=== PATIENT | female | born 1995 | race Caucasian/White ===

== ENCOUNTER 2016-12-08 10:43 | Emergency (ER) | payer OTHER ==
[~2016-12-08] VITALS: Ht 170.2 cm; Wt 104.3 kg
[~2016-12-08 10:43] MED LIST: ALBUTEROL SULFAT3 M1 INH; ANECREAM4% PR; BENTYL20 MG PO; CRYSELLE 30 MCG1 TAB PO; DIAZEPAM5 MG PO; EPIPEN ADULT A0.3 MG IM; FENOFIBRATE145 MG PO; IBUPROFEN800 M1 PO; IBUPROFEN800 MG PO; INVEGA; MONTELUKAST SOD10 MG PO; NAPROXEN500 MG; NORCO 325 MG-51 TAB PO; PRENATAL1 TA2 PO; PROPRANOLOL HCL60 MG PO; SUMATRIPTAN SUC50 MG; SYMBICORT 80/4.1 PUF; VENTOLIN H0.09 MG/Ac INH; VITAMIN D50000 IU PO
--- NOTE | 2016-12-08 12:03 | ED GI/GU/ABDOMINAL COMPLAINT ---
See Addendum History of Present Illness General Chief Complaint: Female Urogenital Problems Stated Complaint: SIB [facility], BLEEDING,CRAMPING X 3 DAYS Source: patient, old records Exam Limitations: no limitations Vital Signs & Intake/Output Vital Signs & Intake/Output Vital Signs Date Time Temp Pulse Resp B/P Pulse O2 O2 Flow FiO2 Ox Delivery Rate 12/08 1317 97.5 68 18 123/56 97 Room Air 12/08 1055 96.7 81 20 112/78 98 Room Air ED Intake and Output 12/09 0000 12/08 1200 Intake Total Output Total Balance Patient 230 lb Weight Allergies Coded Allergies: peanut (Severe, THROAT CLOSES 02/08/16) divalproex sodium (From DEPAKOTE) (Intermediate, AMMONIA LEVEL IN LIVER ELEVATES 02/08/16) haloperidol (From HALDOL) (Intermediate, DYSTONIA 02/08/16) shellfish derived (HIVES AND THROAT GETS SCRATCHY 02/08/16) Uncoded Allergies: SEAFOOD (THROAT GETS ITCHY AND HIVES 02/08/16) Triage Note: PT TO ED C/O VAGINAL BLEEDING AND CRAMPING SINCE THURSDAY. PT IS POST-PARTEM 6 MONTHS. STATES MENSES HAS NOT REGULATED BACK TO NORMAL. PT HAS MERINA IN PLACE, PLACED IN JUL. PT CALLED [facility] AND TOLD TO COME TO ED. PT STATES "I HAVE USED 2 SUPER TAMPONS IN UNDER 2 HOURS". Triage Nurses Notes Reviewed? yes ? n Is pt currently ? No HPI: Patient is a 21-year-old female presents complaining of vaginal bleeding and pelvic cramping.. Symptoms onset on Thursday and have been waxing and waning since onset. Patient reports that she has gone through 2 super tampons today and went through at least 8 super tampons yesterday. Patient reports that since arriving at the emergency department bleeding has significantly improved. Pelvic cramping is severe. Symptoms feel similar to when patient had uterine fibroids. Patient reports that the uterine fibroids improved while she was . Patient is approximately 6.5 months . Patient had a Mirena intrauterine device installed in July 2016. Currently reports associated headache. Patient had one episode of lightheadedness when she stood earlier today. Denies fevers, chills, urinary symptoms. (ELIE LUI,TAE) Reconcile Medications Ibuprofen 800 MG TABLET 1 TAB PO Q8 PRN PAIN Ibuprofen 800 MG TABLET 800 MG PO Q6P PRN PAIN SCALE 4-6 (MODERATE) PNV95/FERROUS FUMARATE/FA ( Formula Tablet) 1 TAB TAB 1 TAB PO DAILY (Reported) Tylenol With Codeine (Tylenol With Codeine #3 Tablet) 300 MG-30 MG TABLET 1-2 TAB PO Q6 PRN PAIN may cause drowsiness Venlafaxine HCl (Venlafaxine HCl ER) 37.5 MG CAP.ER.24H 1 CAP PO DAILY ANXIETY (Reported) (ISH NOLEN,CRISPIN) Past History Travel History Traveled to [place] past 21 day No Medical History Any Pertinent Medical History? 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 No (TAE HUSSEIN) Review of Systems Review of Systems Constitutional: Denies: chills, fever. EENTM: Reports: no symptoms. Respiratory: Reports: no symptoms. Cardiovascular: Reports: no symptoms. GI: Denies: nausea, vomiting. Genitourinary: Reports: see HPI. Musculoskeletal: Reports: no symptoms. Skin: Reports: no symptoms. Neurological/Psychological: Reports: headache. Hematologic/Endocrine: Reports: no symptoms. Immunologic/Allergic: Reports: no symptoms. (TAE HUSSEIN) Physical Exam Physical Exam General Appearance: well developed/nourished, alert, awake Head: atraumatic, normal appearance Eyes: Bilateral: normal appearance, PERRL, EOMI. Ears, Nose, Throat, Mouth: hearing grossly normal, moist mucous membrane Neck: normal inspection, supple, full range of motion Respiratory: normal breath sounds, chest non-tender, no respiratory distress, lungs clear Cardiovascular: regular rate/rhythm Gastrointestinal: normal bowel sounds, soft, diffuse pelvic tenderness Back: normal inspection, normal range of motion Extremities: normal range of motion Neurologic/Psych: no motor/sensory deficits, awake, alert, oriented x 3, normal gait, normal mood/affect Skin: intact, normal color, warm/dry Core Measures ACS in differential dx? No Severe Sepsis Present: No Septic Shock Present: No (TAE HUSSEIN) Progress Differential Diagnosis: uterine fibroid, anemia, hormonal abnormality, thyroid abnormality, ectopic Plan of Care: Orders Procedure Date/time Status CBC WITHOUT DIFFERENTIAL 12/08 1202 Complete BASIC METABOLIC PANEL 12/08 1202 Complete URINE 12/08 1057 Complete URINALYSIS 12/08 1057 Complete Current Medications Sig/Yasmani Start time Last Medication Dose Stop Time Status Admin Ibuprofen 800 MG ONCE ONE 12/08 1330 CAN (Motrin) 12/08 1331 Tramadol HCl 50 MG ONCE ONE 12/08 1330 CAN (Ultram) 12/08 1331 Laboratory Tests 12/08/16 1250: Anion Gap 7, Estimated GFR > 60, BUN/Creatinine Ratio 12.5, Glucose 83, Calcium 9.3, CBC w Diff NO MAN DIFF REQ, RBC 4.80, MCV 86.6, MCH 29.6, RDW 11.9, MPV 9.3 , Gran % 59.4, Lymphocytes % 28.2, Monocytes % 7.3, Eosinophils % 4.9, Basophils % 0.2, Absolute Granulocytes 4.1, Absolute Lymphocytes 1.9, Absolute Monocytes 0.5, Absolute Eosinophils 0.3, Absolute Basophils 0, PUBS MCHC 34.2 12/08/16 1214: Urine Color BLDY H, Urine Clarity HAZY H, Urine pH 6.0, Ur Specific [place] >= 1.030, Urine Protein 30 H, Urine Ketones NEG, Urine Nitrite NEG, Urine Bilirubin NEG, Urine Urobilinogen 0.2, Ur Leukocyte Esterase TRACE H, Ur Microscopic SEDIMENT EXAMINED, Urine RBC PACKD H, Urine WBC 3-5 H, Ur Epithelial Cells FEW, Urine Mucus RARE, Urine Hemoglobin LARGE H, Urine Glucose NEG, Urine Test NEGATIVE 1330: Results of labs and ultrasound discussed with patient. Patient's hemoglobin and hematocrit within normal limits, mild bleeding on vaginal exam. Patient appears stable for discharge with follow-up with her intravenous therapy nurse. (TAE HUSSEIN) Diagnostic Imaging: Viewed by Me: Ultrasound. Discussed w/RAD: Ultrasound. Radiology Impression: PATIENT: ANDRA LARES PRESENT AGE: 21 PATIENT ACCOUNT NO: [id number] : 94 LOCATION: [facility] ORDERING PHYSICIAN: TAE LUI SERVICE DATE: 12/08/16 EXAM TYPE: US - US-TRANSVAGINAL EXAMINATION: US TRANSVAGINAL CLINICAL INFORMATION: Pelvic pain and vaginal bleeding. Evaluate for fibroids. COMPARISON: None. TECHNIQUE: Sonographic imaging of the pelvis was performed using transabdominal and transvaginal transducers. FINDINGS: The anteflexed uterus measures 8.3 cm long, 3.6 cm AP and 4.5 cm transverse. The endometrium has a normal, homogeneous echotexture and measures up to 0.3 cm AP. A small, 0.2 cm echogenic focus in the posterior subendometrial area has the appearance of focal calcification. There is no evidence of uterine leiomyoma or endometrial polyp. The contraceptive device extends from the level of the lower uterine segment and through the internal cervical os into the endocervical canal. The ovaries have normal size and echotexture. There are no ovarian masses. The right ovary is 3.2 x 2.1 x 1.8 cm, volume of 6 mL. The left ovary is 2.5 x 1.4 x 1.4 cm, volume of 3 mL. Color Doppler images show presence of normal arterial and venous flow within the ovaries. A trace amount of free fluid is present in the pelvic cul-de-sac. IMPRESSION: 1. No evidence of uterine leiomyoma. 2. The contraceptive device is low in position and extends from the lower uterine segment into the cervical canal. 3. The ovaries are normal. DICTATED BY: COLTON HINTON MD DATE/TIME DICTATED:12/08/161312 GERMAN TUTOR:[place] DATE/TIME TRANSCRIBED:1312 CONFIDENTIAL, DO NOT COPY WITHOUT APPROPRIATE AUTHORIZATION. < Electronically signed in Other Vendor System> SIGNED BY: COLTON HINTON MD 12/08/16 1323 Initial ED EKG: none (ELIE LUI,TAE) Departure Departure Time of Disposition: 133 Disposition: HOME OR SELF CARE Condition: Stable Clinical Impression Primary Impression: Abnormal uterine bleeding Referrals: WILLIAM NOLEN,DAVIN SHARPE MD,Angelica ROJO (PCP/Family) Additional Instructions: Follow-up with your intravenous therapy nurse this week for further evaluation. Call tomorrow morning for appointment. Return to emergency department if bleeding through more than 1 pad per hour, fevers, increasing pain, or worsening of symptoms. Departure Forms: Customer Survey General Discharge Information Prescriptions: Current Visit Scripts Ibuprofen 1 TAB PO Q8 PRN PAIN #20 TAB Tylenol With Codeine (Tylenol With Codeine #3 Tablet) 1-2 TAB PO Q6 PRN PAIN #15 TAB may cause drowsiness (TAE HUSSEIN) PA/PSYCHOLOGIST CHIEF Co-Sign Statement Statement: ED Attending supervision documentation- [] I saw and evaluated the patient. I have also reviewed all the pertinent lab results and diagnostic results. I agree with the findings and the plan of care as documented in the PA's/PSYCHOLOGIST CHIEF's documentation. [X] I have reviewed the ED Record and agree with the PA's/PSYCHOLOGIST CHIEF's documentation. [] Additions or exceptions (if any) to the PAs/PSYCHOLOGIST CHIEF's note and plan are summarized below: [] (ISH NOLEN,CRISPIN)
[2016-12-08 13:12] LABS: ABSOLUTE BASOPHIL COUNT 0 /CUMM (0.0-0.2); ABSOLUTE EOSINOPHIL COUNT 0.3 /CUMM (0.0-0.7); ABSOLUTE GRANULOCYTE CT 4.1 /CUMM (1.4-6.5); ABSOLUTE LYMPH COUNT 1.9 /CUMM (1.2-3.4); ABSOLUTE MONOCYTE COUNT 0.5 /CUMM (0.10-0.60); BASOPHIL % 0.2 % (0.0-2.0); EOSINOPHIL % 4.9 % (0-5); GRANULOCYTE % 59.4 % (42.2-75.2); HEMATOCRIT 41.6 % (37-47); MEAN CORPUSCULAR HGB 29.6 PG (27.0-31.0); MEAN CORPUSCULAR HGB CONC 34.2 G/DL (33.0-37.0); MEAN CORPUSCULAR VOLUME 86.6 FL (81.0-99.0); MEAN PLATELET VOLUME 9.3 FL (7.4-10.4); PLATELET COUNT 178 /CUMM (130-400); RBC DISTRIBUTION WIDTH 11.9 % (11.5-14.5); WHITE BLOOD CELL COUNT 6.9 /CUMM (4.8-10.8)
[2016-12-08 13:17] VITALS: BP 123/56
--- NOTE | 2016-12-08 13:23 | ULTRASOUND REPORT ---
EXAMINATION: US TRANSVAGINAL CLINICAL INFORMATION: Pelvic pain and vaginal bleeding. Evaluate for fibroids. COMPARISON: None. TECHNIQUE: Sonographic imaging of the pelvis was performed using transabdominal and transvaginal transducers. FINDINGS: The anteflexed uterus measures 8.3 cm long, 3.6 cm AP and 4.5 cm transverse. The endometrium has a normal, homogeneous echotexture and measures up to 0.3 cm AP. A small, 0.2 cm echogenic focus in the posterior subendometrial area has the appearance of focal calcification. There is no evidence of uterine leiomyoma or endometrial polyp. The contraceptive device extends from the level of the lower uterine segment and through the internal cervical os into the endocervical canal. The ovaries have normal size and echotexture. There are no ovarian masses. The right ovary is 3.2 x 2.1 x 1.8 cm, volume of 6 mL. The left ovary is 2.5 x 1.4 x 1.4 cm, volume of 3 mL. Color Doppler images show presence of normal arterial and venous flow within the ovaries. A trace amount of free fluid is present in the pelvic cul-de-sac. IMPRESSION: 1. No evidence of uterine leiomyoma. 2. The contraceptive device is low in position and extends from the lower uterine segment into the cervical canal. 3. The ovaries are normal.
[2016-12-08] MEDS ORDERED: IBUPROFEN800 M1 PO (13:31)
[2016-12-08] MEDS ORDERED: TYLENOL WITH C1 EACH PO (13:31)
[2016-12-08] MEDS ORDERED: VENLAFAXINE H37.5 M4 PO (13:46)
== END 2016-12-08 13:47 ==
LOC: ERH 10:43
PROVIDERS: Physician Assistant
DX: N93.9 Abnormal uterine and vaginal bleeding, unspecified (principal)
CPT/HCPCS: 81001; 81025

== ENCOUNTER 2017-02-26 13:25 | Emergency (ER) | payer OTHER ==
[~2017-02-26 13:25] MED LIST changes: +TYLENOL WITH C1 EACH PO; +VENLAFAXINE H37.5 M4 PO
--- NOTE | 2017-02-26 13:37 | ED PSYCHIATRIC COMPLAINT ---
History of Present Illness General Chief Complaint: Psychiatric Related Complaint Stated Complaint: +SI Source: patient, old records, EMS, police Exam Limitations: no limitations Vital Signs & Intake/Output Vital Signs & Intake/Output Vital Signs Date Time Temp Pulse Resp B/P Pulse O2 O2 Flow FiO2 Ox Delivery Rate 02/27 0612 98.2 72 18 120/58 95 Room Air 02/26 2111 Room Air 02/26 1709 Room Air 02/26 1400 Room Air Allergies Coded Allergies: peanut (Severe, THROAT CLOSES 02/08/16) divalproex sodium (From DEPAKOTE) (Intermediate, AMMONIA LEVEL IN LIVER ELEVATES 02/08/16) haloperidol (From HALDOL) (Intermediate, DYSTONIA 02/08/16) shellfish derived (HIVES AND THROAT GETS SCRATCHY 02/08/16) Uncoded Allergies: SEAFOOD (THROAT GETS ITCHY AND HIVES 02/08/16) Reconcile Medications Ibuprofen 800 MG TABLET 1 TAB PO Q8 PRN PAIN Ibuprofen 800 MG TABLET 800 MG PO Q6P PRN PAIN SCALE 4-6 (MODERATE) PNV95/FERROUS FUMARATE/FA ( Formula Tablet) 1 TAB TAB 1 TAB PO DAILY (Reported) Tylenol With Codeine (Tylenol With Codeine #3 Tablet) 300 MG-30 MG TABLET 1-2 TAB PO Q6 PRN PAIN may cause drowsiness Venlafaxine HCl (Venlafaxine HCl ER) 37.5 MG CAP.ER.24H 1 CAP PO DAILY ANXIETY (Reported) Triage Note: PT [place] ON PEER FROM [facility] IN [place]. PT STATED TO COUNSELOR THERE THAT SHE HAS +SI THOUGHTS, BUT WOULD NEVER ACT ON THEM BECAUCE OF HER DAUGHTER. PT DENIES HI. Triage Nurses Notes Reviewed? yes HPI: Patient was seen a counselor today after discharge from the hospital yesterday. During speaking with counselor the patient did mention that she was having suicidal thoughts. At that point a counselor called 911. The patient states that she would never do anything to hurt herself because she has a 9 month old daughter that she needs to be home for. Patient is upset that the counselor and then the police made her come in. Patient states that she told her story once to the nurse and myself but will not tell again. Patient denies any homicidal ideations. Patient states that she always has thoughts of hurting herself but will never act on them and has been admitted multiple times in the past for them. Patient states that she knows when she's getting to a point where she needs help and she is nowhere near the point (HAILE NOLEN,JEAN Cavanaugh) Past History Medical History Any Pertinent Medical History? 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 No (JEAN BE MD) Review of Systems Review of Systems Constitutional: Reports: no symptoms. EENTM: Reports: no symptoms. Respiratory: Reports: no symptoms. Cardiovascular: Reports: no symptoms. GI: Reports: no symptoms. Genitourinary: Reports: no symptoms. Musculoskeletal: Reports: no symptoms. Skin: Reports: no symptoms. Neurological/Psychological: Reports: see HPI. Hematologic/Endocrine: Reports: no symptoms. Immunologic/Allergic: Reports: no symptoms. All Other Systems: Reviewed and Negative (HAILE NOLEN,JEAN Cavanaugh) Physical Exam Physical Exam General Appearance: well developed/nourished, mild distress Head: atraumatic Eyes: Bilateral: PERRL, EOMI. Ears, Nose, Throat: normal pharynx, normal ENT inspection, hearing grossly normal Neck: normal inspection, supple Respiratory: normal breath sounds Cardiovascular: regular rate/rhythm Gastrointestinal: normal bowel sounds, soft, non-tender Extremities: normal range of motion Neurological/Psychiatric: no motor/sensory deficits, awake, agitated, alert, oriented x 3 Appearance/Memory/Insight: appropriate appearance, appropriate insight Behavoir/Eye Contact/Speech: cooperative, normal speech, good eye contact Thoughts/Hallucinations: normal thought pattern, no apparent hallucination Skin: intact, normal color, warm/dry SAD PERSONS Done? CRISIS CONSULT OBTAINED (JEAN BE MD) Progress Differential Diagnosis: drug intoxication, drug overdose, drug withdrawal, electrolyte abnormality Plan of Care: Orders Procedure Date/time Status Regular Diet 02/27 B Active Continuous Observation Monitor 02/27 0700 Active Continuous Observation Monitor 02/27 0300 Active Continuous Observation Monitor 02/26 2300 Active Continuous Observation Monitor 02/26 190 Active Continuous Observation Monitor 02/26 1336 Active URINE 02/26 133 Complete URINE DRUG SCREEN FOR ER ONLY 02/26 1336 Complete ED CRISIS PSYCH CONSULT 02/26 1336 Active Current Medications Sig/Yasmani Start time Last Medication Dose Stop Time Status Admin Venlafaxine HCl 37.5 MG AT BEDTIME 02/27 2200 AC (Effexor Xr) Laboratory Tests 02/26/17 1555: Urine Opiates Screen < 100.00, Methadone Screen 41, Barbiturate Screen < 60, Ur Phencyclidine Scrn < 6.00, Amphetamines Screen < 100, U Benzodiazepines Scrn < 85, Urine Cocaine Screen < 50, Urine Cannabis Screen 6.90, Urine Test NEGATIVE 02/27/2017 7:16:09 AM Patient signed out to me by Dr. Zuleta. Pending crisis evaluation and disposition. 9:32 AM Patietn cleared by crisis for discharge home. Mariya for safety. Will follow up with [facility] on Thursday. (CRISPIN DENG MD) Hand-Off Endorsed To: ODILIA ZULETA MD Endorsed Time: 1899 Pending: consult (HAILE NOLEN,JEAN Cavanaugh) Hand-Off Endorsed To: CRISPIN DENG MD Endorsed Time: 699 Pending: other (re eval and likely admit) (ODILIA ZULETA MD) Departure Departure Condition: Stable Clinical Impression Primary Impression: Depression Referrals: Angelica SHARPE MD (Family) Departure Forms: Customer Survey General Discharge Information (JEAN BE MD) Departure Time of Disposition: 931 Disposition: HOME OR SELF CARE Additional Instructions: RETURN IF SYMPTOMS WORSEN OR FOR ANY CONCERNS. FOLLOW UP WITH [facility] ON THURSDAY AT 9:45 AM. (CRISPIN DENG MD)
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
[2017-02-27 09:55] VITALS: BP 130/65
== END 2017-02-27 09:56 ==
LOC: ERH 13:25
DX: F32.9 Major depressive disorder, single episode, unspecified (principal)
CPT/HCPCS: 80307; 81025; G0463

== ENCOUNTER → 2017-05-27 | Day surgery (SDC) | payer OTHER ==
[~2017-05-27] VITALS: Ht 170.2 cm; Wt 104.3 kg
[~2017-05-27] MED LIST changes: +EFFEXOR XR75 M1 PO; +SEROQUEL100 M1 PO
--- NOTE | 2017-05-27 10:54 | Operative Report ---
Operative/Inv Procedure Report Surgery Date: 05/27/17 Name of Procedure: Right wrist release of first extensor/dorsal compartment Pre-Operative Diagnosis: Right wrist DEQUERVAINS tenosynovitis Post-Operative Diagnosis: Same Estimated Blood Loss: none Surgeon/Practice Director: FOX CAN MD Anesthesia: laryngeal mask airway IV Fluids: See anesthesia record Implants: None Drains: None Specimens: None Complications: None Condition: Stable Operative Indication: Patient's 21-year-old female with persistent right wrist pain over the first dorsal compartment of the wrist. She fail conservative treatment is indicated for release of the compartment. The risks and benefits the procedure were discussed with the patient detail and she wished to proceed. Operative/Procedure Note Note: Once informed consent was obtained and the correct limb was identified the patient brought to operative room placed on table supine position. After initiation of anesthesia patient's right upper chamois had a tourniquet placed was prepped and draped usual sterile fashion. To begin the procedure small incision was made in line with the skin creases over the first dorsal compartment of the wrist. Sharp dissection was carried down through skin and subcutaneous tissue with care to avoid the sensory nerve. The first dorsal was identified and nicked with a #15 blade. The sheath of the first dorsal compartment was then released completely with tenotomy scissors. Multiple slips of the tendon were identified and all slips were released. The wound was irrigated and the incision closed with 3-0 nylon interrupted sutures.
== END ==
LOC: STS 02:23
DX: M65.4 Radial styloid tenosynovitis [de Quervain] (principal); F17.200 Nicotine dependence, unspecified, uncomplicated; E66.01 Morbid (severe) obesity due to excess calories; Z68.35 Body mass index [BMI] 35.0-35.9, adult
CPT/HCPCS: 81025; J0690; J2250